=== PATIENT | male | born 1970 | race Caucasian/White ===

== ENCOUNTER 2023-09-17 07:37 | Day surgery (SDC) | payer MEDICAID ==
[~2023-09-17] VITALS: Ht 170.2 cm; Wt 81.6 kg
[2023-09-17] MEDS ORDERED: SIMETHICONE 40 MG/0.6 ML ML ONE (08:08)
[2023-09-17] MEDS ORDERED: MIDAZOLAM HCL 5 MG/5 ML VIAL ONE (08:09)
[2023-09-17] MEDS ORDERED: MEPERIDINE 100 MG INJ. 100 MG/ML VIAL ONE (08:09)
[2023-09-17 12:18] VITALS: O2SAT 99
[2023-09-17 14:41] VITALS: BP_SYST 96; PULSE 71; RESP 19
== END 2023-09-17 09:49 | disposition home or self-care (01) ==
LOC: SDS 07:37 → SMU 07:39 → SDS 09:49
PROVIDERS: ATTEND Internal Medicine Gastroenterology
DX: Z12.11 Encounter for screening for malignant neoplasm of colon (principal); K63.5 Polyp of colon; K64.8 Other hemorrhoids; I10 Essential (primary) hypertension; Z98.890 Other specified postprocedural states
CPT/HCPCS: 45385; 88305; 99152; 99153; G0378; J2250; J2175